=== PATIENT | male | born 1985 | race Caucasian/White ===

== ENCOUNTER 2018-04-11 20:36 | Emergency (ER) | payer OTHER ==
[~2018-04-11] VITALS: Ht 190.5 cm; Wt 83.9 kg
[~2018-04-11 20:36] MED LIST: ACETAMINOPHEN-H1 TA2 PO; BACTRIM DS 8001 TA1 PO; ZANTAC150 MG PO; ZITHROMAX Z PA250 MG PO
[2018-04-11] MEDS ORDERED: CEPHALEXIN500 M1 PO (21:01)
[2018-04-11] MEDS ORDERED: SEPTDS PO (21:01)
== END 2018-04-11 21:15 | disposition home or self-care (01) ==
LOC: ED 20:36
DX: S20.361A Insect bite (nonvenomous) of right front wall of thorax, initial encounter (principal); F17.200 Nicotine dependence, unspecified, uncomplicated; F11.10 Opioid abuse, uncomplicated; F12.90 Cannabis use, unspecified, uncomplicated; Z86.14 Personal history of Methicillin resistant Staphylococcus aureus infection; W57.XXXA Bitten or stung by nonvenomous insect and other nonvenomous arthropods, initial encounter; Y93.89 Activity, other specified; Y92.89 Other specified places as the place of occurrence of the external cause; Y99.9 Unspecified external cause status

== ENCOUNTER 2018-11-13 18:55 | Emergency (ER) | payer OTHER ==
[~2018-11-13] VITALS: Ht 190.5 cm; Wt 95.3 kg
[~2018-11-13 18:55] MED LIST changes: +CEPHALEXIN500 M1 PO; +SEPTDS PO
[2018-11-13 19:33] LABS: BILIRUBIN NEGATIVE (NEGATIVE); BLOOD NEGATIVE (NEGATIVE); CLARITY SL CLOUDY (CLEAR); COLOR YELLOW (YELLOW); GLUCOSE NEGATIVE (NEGATIVE); KETONE NEGATIVE (NEGATIVE); LEUKO ESTERASE 1+ (NEGATIVE); NITRITE NEGATIVE (NEGATIVE); PH 6.5 (5.0-9.0); UROBILINOGEN 0.2 E.U./dl (0.2-1.0)
[2018-11-13 19:54] LABS: MUCOUS TRACE; WBC TNTC wbc/hpf (0-5)
[2018-11-15 22:07] LABS: GONOCOCCUS BY NAA Positive (Negative)
[2019-03-20] MEDS ORDERED: AUGMENTIN 875875 MG PO (10:27)
[2019-03-20] MEDS ORDERED: NAPROSYN500 MG PO (14:17)
[2019-03-20] MEDS ORDERED: TYLENOL325 M1 PO (14:17)
[2019-03-20] MEDS ORDERED: BENADRYL ALLERG25 M5 PO (14:17)
== END 2018-11-13 20:01 | disposition home or self-care (01) ==
LOC: ED 18:55
PROVIDERS: Student in an Organized Health Care Education/Training Program
DX: R36.9 Urethral discharge, unspecified (principal); R30.9 Painful micturition, unspecified; F17.200 Nicotine dependence, unspecified, uncomplicated; Z11.3 Encounter for screening for infections with a predominantly sexual mode of transmission

== ENCOUNTER 2019-12-12 09:38 | Emergency (ER) | payer SELFPAY ==
[~2019-12-12] VITALS: Ht 190.5 cm; Wt 90.7 kg
[~2019-12-12 09:38] MED LIST changes: +AUGMENTIN 875875 MG PO; +BENADRYL ALLERG25 M5 PO; +NAPROSYN500 MG PO; +TYLENOL325 M1 PO
[2019-12-12 11:00] LABS: BASO % 0.2 % (0.0-1.0); EOS # 0.1 10*3/uL (0.0-0.4); EOS % 0.6 % (1.0-4.0); HEMATOCRIT 41.1 % (42.0-52.0); HEMOGLOBIN 13.9 g/dl (14.0-18.0); LYMPH # 1.5 10*3/uL (1.3-4.4); LYMPH % 12.1 % (27.0-41.0); MEAN CELL VOLUME 90.9 fl (80.0-94.0); MEAN CORPUSCULAR HGB 30.8 pg (27.0-31.0); MEAN CORPUSCULAR HGB CONC 33.8 g/dl (33.0-37.0); MEAN PLATELET VOLUME 10.1 fl (9.6-12.3); MONO # 0.4 10*3/uL (0.1-1.0); MONO % 3.4 % (3.0-9.0); NEUT # 10.2 10*3/uL (2.3-7.9); NEUT % 83.4 % (47.0-73.0); PLATELET COUNT AUTOMATED 245 10*3/uL (130-400); RED BLOOD COUNT 4.52 10*6/uL (4.50-5.90); RED CELL DISTRI WIDTH 12.7 % (0-14.5); WHITE BLOOD COUNT 12.3 10*3/uL (4.8-10.8)
[2019-12-12 11:06] LABS: URINE AMPHETAMINES < 1000 (1000ng/ml); URINE BARBITURATES < 200 (200ng/ml); URINE BENZODIAZEPINES > 200 (200ng/ml); URINE CANNABINOIDS (THC) > 50 (50ng/ml); URINE COCAINE > 300 (300ng/ml); URINE METHADONE < 300 (300ng/ml); URINE OPIATES > 300 (300ng/ml); URINE PHENCYCLIDINE < 25 (25ng/ml)
[2019-12-12 11:16] LABS: ALBUMIN 3.9 gm/dl (3.1-4.5); ALKALINE PHOSPHATASE 105 U/L (45-117); BUN 11 mg/dl (7-24); CHLORIDE 105 mmol/L (98-107); CREATININE 0.93 mg/dL (0.70-1.30); POTASSIUM 3.7 mmol/L (3.5-5.1); SGOT/AST 14 IU/L (3-35); SGPT/ALT 22 U/L (12-78); SODIUM 135 mmol/L (136-145); TOTAL PROTEIN 8.3 gm/dL (6.4-8.2)
[2019-12-12 11:21] LABS: ETHYL ALCOHOL < 3.0 mg/dl (<3)
[2019-12-12 11:25] LABS: BILIRUBIN NEGATIVE (NEGATIVE); BLOOD TRACE-INTACT (NEGATIVE); CLARITY CLOUDY (CLEAR); COLOR YELLOW (YELLOW); GLUCOSE NEGATIVE (NEGATIVE); KETONE 2+ (NEGATIVE); LEUKO ESTERASE 1+ (NEGATIVE); NITRITE NEGATIVE (NEGATIVE); SPECIFIC GRAVITY 1.015 (1.005-1.030); UROBILINOGEN 0.2 E.U./dl (0.2-1.0)
[2019-12-12 11:27] LABS: BACTERIA 1+
== END 2019-12-12 11:23 | disposition home or self-care (01) ==
LOC: ED 09:38
PROVIDERS: Nurse Practitioner Family
DX: F11.10 Opioid abuse, uncomplicated (principal); F17.200 Nicotine dependence, unspecified, uncomplicated; Z79.2 Long term (current) use of antibiotics; Z79.899 Other long term (current) drug therapy; Z88.2 Allergy status to sulfonamides

== ENCOUNTER 2022-04-29 13:34 | Observation (INO) | payer OTHER ==
[~2022-04-29] VITALS: Ht 190.5 cm; Wt 90.8 kg
[2022-04-29 14:05] LABS: BASO # 0.1 10*3/uL (0.0-0.1); BASO % 0.8 % (0.0-1.0); EOS # 0.4 10*3/uL (0.0-0.4); EOS % 4.2 % (1.0-4.0); LYMPH # 4.4 10*3/uL (1.3-4.4); LYMPH % 43.3 % (27.0-41.0); MEAN CELL VOLUME 89.5 fl (80.0-94.0); MEAN CORPUSCULAR HGB 30.2 pg (27.0-31.0); MEAN CORPUSCULAR HGB CONC 33.8 g/dl (33.0-37.0); MEAN PLATELET VOLUME 10.1 fl (9.6-12.3); MONO # 0.6 10*3/uL (0.1-1.0); MONO % 5.5 % (3.0-9.0); NEUT # 4.7 10*3/uL (2.3-7.9); PLATELET COUNT AUTOMATED 292 10*3/uL (130-400); RED BLOOD COUNT 5.03 10*6/uL (4.50-5.90); RED CELL DISTRI WIDTH 12.4 % (0-14.5); WHITE BLOOD COUNT 10.2 10*3/uL (4.8-10.8)
[2022-04-29 14:07] VITALS: BP 122/70
[2022-04-29 14:21] LABS: ACT PARTIAL THROMBO TIME 29.6 SECONDS (20.0-32.1)
[2022-04-29 14:24] LABS: ALKALINE PHOSPHATASE 121 U/L (45-117); BUN 20 mg/dl (7-24); CHLORIDE 106 mmol/L (98-107); CREATININE 1.25 mg/dL (0.70-1.30); POTASSIUM 3.5 mmol/L (3.5-5.1); SGOT/AST 18 IU/L (3-35); SGPT/ALT 24 U/L (12-78); SODIUM 138 mmol/L (136-145); TOTAL PROTEIN 8.6 gm/dL (6.4-8.2)
[2022-04-29 15:31] VITALS: BP 124/76
[2022-04-29 17:32] VITALS: BP 120/61
[2022-04-29 17:40] VITALS: BP 124/88
[2022-04-29 18:35] VITALS: BP 116/60
[2022-04-29 20:00] VITALS: BP 140/74
[2022-04-29 20:32] LABS: URINE AMPHETAMINES < 1000 (1000ng/ml); URINE BARBITURATES < 200 (200ng/ml); URINE BENZODIAZEPINES < 200 (200ng/ml); URINE CANNABINOIDS (THC) > 50 (50ng/ml); URINE COCAINE > 300 (300ng/ml); URINE METHADONE < 300 (300ng/ml); URINE OPIATES < 300 (300ng/ml)
[2022-04-29 20:33] LABS: URINE PHENCYCLIDINE < 25 (25ng/ml)
[2022-04-30 06:21] LABS: BASO % 0.4 % (0.0-1.0); EOS # 0.1 10*3/uL (0.0-0.4); EOS % 0.8 % (1.0-4.0); HEMATOCRIT 39.6 % (42.0-52.0); LYMPH # 2.6 10*3/uL (1.3-4.4); LYMPH % 24.4 % (27.0-41.0); MEAN CELL VOLUME 88.8 fl (80.0-94.0); MEAN CORPUSCULAR HGB 30.9 pg (27.0-31.0); MEAN CORPUSCULAR HGB CONC 34.8 g/dl (33.0-37.0); MEAN PLATELET VOLUME 10.8 fl (9.6-12.3); MONO # 0.5 10*3/uL (0.1-1.0); MONO % 4.5 % (3.0-9.0); NEUT # 7.4 10*3/uL (2.3-7.9); NEUT % 69.6 % (47.0-73.0); PLATELET COUNT AUTOMATED 266 10*3/uL (130-400); RED BLOOD COUNT 4.46 10*6/uL (4.50-5.90); RED CELL DISTRI WIDTH 12.1 % (0-14.5); WHITE BLOOD COUNT 10.6 10*3/uL (4.8-10.8)
[2022-04-30 06:38] LABS: CHLORIDE 108 mmol/L (98-107); POTASSIUM 3.3 mmol/L (3.5-5.1); SODIUM 138 mmol/L (136-145)
[2022-04-30 06:53] LABS: ALKALINE PHOSPHATASE 104 U/L (45-117); BUN 14 mg/dl (7-24); CHOLESTEROL 182 mg/dL (<200); CREATININE 0.71 mg/dL (0.70-1.30); FREE T4 2.39 ng/dl (0.76-1.46); LDL CHOLESTEROL 123 mg/dL (9-159); SGOT/AST 17 IU/L (3-35); SGPT/ALT 20 U/L (12-78); THYROID STIM HORMONE (HS) 0.246 uIU/ml (0.358-4.75); TOTAL PROTEIN 7.5 gm/dL (6.4-8.2); TRIGLYCERIDES 81 mg/dl (<150)
[2022-04-30 11:21] LABS: VITAMIN D, 25-HYDROXY 36.6 ng/mL (30-100)
[2022-04-30 12:00] VITALS: BP 135/79
== END 2022-04-30 15:37 | disposition left against medical advice (07) ==
LOC: ED 13:34 → 4E 17:15 → EDHOLD 17:15 → 4E 17:45
PROVIDERS: Emergency Medicine; Internal Medicine; ADMIT Internal Medicine; ATTEND Internal Medicine
DX: R07.89 Other chest pain (principal); R06.02 Shortness of breath; R11.0 Nausea; R61 Generalized hyperhidrosis; E87.2 Acidosis; R00.1 Bradycardia, unspecified; R79.82 Elevated C-reactive protein (CRP); F14.10 Cocaine abuse, uncomplicated; E55.9 Vitamin D deficiency, unspecified; F11.23 Opioid dependence with withdrawal; R79.89 Other specified abnormal findings of blood chemistry; Z79.01 Long term (current) use of anticoagulants; Z79.899 Other long term (current) drug therapy